=== PATIENT | male | born 1980 | race Native Hawaiian/Other Pacific Islander ===

== ENCOUNTER 2021-05-29 14:11 | Outpatient (CLI) | payer OTHER ==
[2021-05-29 14:27] LABS: PLATELET COUNT 276 K/uL (142-355)
[2021-05-29 14:35] LABS: POTASSIUM 4.5 mmol/L (3.6-5.2)
== END 2021-05-29 19:24 | disposition home or self-care (01) ==
LOC: LAB 14:11
PROVIDERS: ATTEND Internal Medicine Endocrinology, Diabetes & Metabolism
DX: E11.65 Type 2 diabetes mellitus with hyperglycemia (principal); I10 Essential (primary) hypertension; E66.01 Morbid (severe) obesity due to excess calories; R61 Generalized hyperhidrosis; M79.10 Myalgia, unspecified site; M54.9 Dorsalgia, unspecified; R68.89 Other general symptoms and signs
CPT/HCPCS: 80053; 80061; 82306; 83036; 83525; 84681; 85027